=== PATIENT | male | born 1955 | race Two or more races ===

== ENCOUNTER 2017-12-26 05:52 | Inpatient (IN) | payer MEDICARE, MEDICAID ==
[~2017-12-26] VITALS: Ht 160 cm; Wt 60.7 kg
[~2017-12-26 05:52] MED LIST: FURO20TA3 PO; IBUP200C14 PO
[2017-12-26 07:14] LABS: Basophils # (auto) 0 uL; Basophils % (auto) 0.3 % (0.0-2.0); Eosinophils # (auto) 0.1 uL; Eosinophils % (auto) 1.5 % (0.0-7.0); Hematocrit 37.3 % (41.0-53.0); Hemoglobin 12.4 g/dL (13.5-17.5); Lymphocytes # (auto) 0.3 uL; Lymphocytes % (auto) 3.8 % (10.0-50.0); Mean Corpuscular Hgb Conc. 33.2 g/dL (32.0-36.0); Mean Corpuscular Volume 90.2 fL (80.0-100.0); Monocytes # (auto) 0.9 uL; Monocytes % (auto) 12.1 % (0.0-12.0); Neutrophils # (auto) 6.3 uL; Neutrophils % (auto) 82.3 % (37.0-80.0); Platelet Count (auto) 105 10^3/uL (140-450); Red Blood Cells 4.13 10^6/uL (4.5-5.90); Red Cell Distribution Width 16.8 % (11.8-14.3); White Blood Cell 7.7 10^3/uL (4.4-10.8)
[2017-12-26 07:16] LABS: Urine Bacteria FEW /hpf (None Seen); Urine Blood 2+ /uL (Negative); Urine Mucus FEW (None Seen); Urine Specific Gravity 1.022 (1.001-1.035); Urine WBC 2 /hpf (0 - 3)
[2017-12-26 07:35] LABS: Alanine Aminotransferase 14 U/L (16-61); Alkaline Phosphatase 127 U/L (45-117); Amylase 55 U/L (25-115); Anion Gap 11 (5-15); Aspartate Aminotransferase 50 U/L (15-37); BUN/Creatinine Ratio 23.4; Bilirubin, Total 2.8 mg/dL (0.2-1.0); Blood Urea Nitrogen 26 mg/dL (7-18); Calcium 7.7 mg/dL (8.5-10.1); Carbon Dioxide 17 mmol/L (21-32); Chloride 113 mmol/L (98-107); GFR African American 86 mL/min; GFR Non-African American 71 mL/min; Glucose 110 mg/dL (74-106); Lipase 391 U/L (73-393); Magnesium 2.6 mg/dL (1.6-2.6); Potassium 3.4 mmol/L (3.5-5.1); Sodium 141 mmol/L (136-145)
[2017-12-26 07:36] LABS: INR 1.17 (0.9-1.15); Partial Thromboplastin Time 34.5 sec (23.78-33.04); Prothrombin Time 12.4 sec (9.27-12.13)
[2017-12-26] MEDS ORDERED: SODIUM CHLORIDE 0.9% 1,000 ML IV ONE (09:21)
[2017-12-26] MEDS ORDERED: NITROGLYCERIN 0.4 MG SL TAB SL PRN (13:00)
[2017-12-26] MEDS ORDERED: PROMETHAZINE HCL 25 MG/ML 1ML IV PRN (13:00)
[2017-12-26] MEDS ORDERED: HYDROmorphone HCL 2 MG/ML VL IV PRN (13:00)
[2017-12-26] MEDS ORDERED: TEMAZEPAM 15 MG CAP PO PRN (13:00)
[2017-12-26] MEDS ORDERED: cefTRIAXone 1GM/10ml IVPUSH 10 ML IV ONE (13:00)
[2017-12-26] MEDS ORDERED: ACETAMINOPHEN 500 MG TAB PO PRN (13:00)
[2017-12-26] MEDS ORDERED: MORPHINE SULF(PF) 0.5MG/ML 10ML VIAL IV PRN (13:00)
[2017-12-26] MEDS: SODIUM CHLORIDE 0.9% 1,000 ML IV SCH (16:31)
[2017-12-26] MEDS ORDERED: GASTROGRAFIN 30 ML SOL ONE (16:35)
[2017-12-26] MEDS: metroNIDAZOLE 500MG/100ML 100 ML IV SCH (18:15)
[2017-12-26] MEDS ORDERED: IOHEXOL 300 MG/ML 75ml BOTTLE IJ ONE (18:50)
[2017-12-26 21:42] VITALS: BP 153/78
[2017-12-26 22:00] VITALS: BP 153/78
[2017-12-27] MEDS: metroNIDAZOLE 500MG/100ML 100 ML IV SCH ×4 (00:12→17:52)
[2017-12-27] MEDS: SODIUM CHLORIDE 0.9% 1,000 ML IV SCH ×2 (00:12→10:13)
[2017-12-27] MEDS: HYDROcodone-ACET 5/325MG TAB PO PRN ×4 (01:31→23:44)
[2017-12-27] MEDS ORDERED: KETOROLAC TROMETH 30 MG/ML 1ML VIAL IV ONE (03:00)
[2017-12-27 05:00] VITALS: BP 115/55
[2017-12-27 05:52] LABS: Basophils # (auto) 0 uL; Basophils % (auto) 0.1 % (0.0-2.0); Eosinophils # (auto) 0.1 uL; Eosinophils % (auto) 1.3 % (0.0-7.0); Hematocrit 31.6 % (41.0-53.0); Hemoglobin 10.8 g/dL (13.5-17.5); Lymphocytes # (auto) 0.3 uL; Lymphocytes % (auto) 4.8 % (10.0-50.0); Mean Corpuscular Hemoglobin 30.3 pg (28.0-32.0); Mean Corpuscular Hgb Conc. 34.2 g/dL (32.0-36.0); Mean Corpuscular Volume 88.8 fL (80.0-100.0); Monocytes # (auto) 0.8 uL; Neutrophils # (auto) 5.7 uL; Neutrophils % (auto) 82.8 % (37.0-80.0); Platelet Count (auto) 101 10^3/uL (140-450); Red Blood Cells 3.56 10^6/uL (4.5-5.90); Red Cell Distribution Width 16.2 % (11.8-14.3); White Blood Cell 6.9 10^3/uL (4.4-10.8)
[2017-12-27 06:15] LABS: Potassium 3.5 mmol/L (3.5-5.1)
[2017-12-27 06:23] LABS: Albumin 1.7 g/dL (3.4-5.0); BUN/Creatinine Ratio 21.2; Bilirubin, Total 2.7 mg/dL (0.2-1.0); Calcium 7.3 mg/dL (8.5-10.1); Total Protein 5.6 g/dL (6.4-8.2)
[2017-12-27] MEDS ORDERED: IOHEXOL 300 MG/ML 75ml BOTTLE IJ ONE (08:26)
[2017-12-27 09:00] VITALS: BP 106/56
[2017-12-27] MEDS: PANTOPRAZOLE 40 MG TAB PO SCH (10:14)
[2017-12-27] MEDS: cefTRIAXone 1GM/10ml IVPUSH 10 ML IV SCH (10:14)
[2017-12-27 13:00] VITALS: BP 117/62
[2017-12-27 17:00] VITALS: BP 132/73
[2017-12-27 22:00] VITALS: BP 105/60
[2017-12-27] MEDS: LORazepam 0.5 MG TAB PO PRN (22:22)
[2017-12-28] MEDS: metroNIDAZOLE 500MG/100ML 100 ML IV SCH ×5 (00:22→23:45)
[2017-12-28 05:01] VITALS: BP 117/61
[2017-12-28 05:04] VITALS: BP 117/61
[2017-12-28] MEDS: HYDROcodone-ACET 5/325MG TAB PO PRN (05:47)
[2017-12-28] MEDS: LORazepam 0.5 MG TAB PO PRN (06:01)
[2017-12-28 06:22] LABS: Basophils # (auto) 0 uL; Basophils % (auto) 0.3 % (0.0-2.0); Eosinophils # (auto) 0.1 uL; Eosinophils % (auto) 1.2 % (0.0-7.0); Hematocrit 34.5 % (41.0-53.0); Hemoglobin 11.8 g/dL (13.5-17.5); Lymphocytes # (auto) 0.4 uL; Lymphocytes % (auto) 4.4 % (10.0-50.0); Mean Corpuscular Hemoglobin 30.5 pg (28.0-32.0); Mean Corpuscular Hgb Conc. 34.1 g/dL (32.0-36.0); Mean Corpuscular Volume 89.6 fL (80.0-100.0); Monocytes # (auto) 0.9 uL; Monocytes % (auto) 10.2 % (0.0-12.0); Neutrophils # (auto) 7.5 uL; Neutrophils % (auto) 83.9 % (37.0-80.0); Platelet Count (auto) 104 10^3/uL (140-450); Red Blood Cells 3.85 10^6/uL (4.5-5.90); Red Cell Distribution Width 16.6 % (11.8-14.3)
[2017-12-28 06:43] LABS: Albumin 1.8 g/dL (3.4-5.0); BUN/Creatinine Ratio 19.8; Calcium 7.4 mg/dL (8.5-10.1); Potassium 3.7 mmol/L (3.5-5.1)
[2017-12-28 06:46] LABS: Bilirubin, Total 3.5 mg/dL (0.2-1.0); Total Protein 5.9 g/dL (6.4-8.2)
[2017-12-28 09:00] VITALS: BP 102/58
[2017-12-28] MEDS ORDERED: OXYCODONE HCL 5MG TAB PO PRN (09:30)
[2017-12-28] MEDS: cefTRIAXone 1GM/10ml IVPUSH 10 ML IV SCH (09:34)
[2017-12-28] MEDS: PANTOPRAZOLE 40 MG TAB PO SCH (09:35)
[2017-12-28] MEDS: MORPHINE SULF 15mg ER tab PO SCH ×2 (09:35→23:45)
[2017-12-28 13:00] VITALS: BP 126/69
[2017-12-28 17:00] VITALS: BP 136/64
[2017-12-28 22:00] VITALS: BP 128/56
[2017-12-29] MEDS: LORazepam 0.5 MG TAB PO PRN (01:04)
[2017-12-29 05:00] VITALS: BP 122/72
[2017-12-29] MEDS: metroNIDAZOLE 500MG/100ML 100 ML IV SCH ×3 (05:58→18:00)
[2017-12-29 09:00] VITALS: BP 113/61
[2017-12-29] MEDS: cefTRIAXone 1GM/10ml IVPUSH 10 ML IV SCH (10:32)
[2017-12-29] MEDS: MORPHINE SULF 15mg ER tab PO SCH ×2 (10:33→22:18)
[2017-12-29] MEDS: PANTOPRAZOLE 40 MG TAB PO SCH (10:33)
[2017-12-29 13:00] VITALS: BP 117/68
[2017-12-29 17:00] VITALS: BP 130/68
[2017-12-29 22:00] VITALS: BP 127/60
[2017-12-30] MEDS: metroNIDAZOLE 500MG/100ML 100 ML IV SCH ×3 (00:14→12:18)
[2017-12-30] MEDS: LORazepam 0.5 MG TAB PO PRN (00:15)
[2017-12-30 05:43] VITALS: BP 128/64
[2017-12-30 09:00] VITALS: BP 130/67
[2017-12-30] MEDS: cefTRIAXone 1GM/10ml IVPUSH 10 ML IV SCH (09:48)
[2017-12-30] MEDS: PANTOPRAZOLE 40 MG TAB PO SCH (09:49)
[2017-12-30] MEDS: MORPHINE SULF 15mg ER tab PO SCH (09:49)
[2017-12-30 13:00] VITALS: BP 133/68
[2017-12-30 13:36] VITALS: BP 130/67
[2017-12-31 08:55] LABS: Hepatitis B Surface Antibody Negative
[2017-12-31 13:31] LABS: Hepatitis C Antibody Positive (Negative)
== END 2017-12-30 15:35 | disposition home or self-care (01) | DRG 371 ==
LOC: ER 05:55 → TELE 05:56 → TELE-WESTW 20:20 → WEST WING 12-28 09:22
PROVIDERS: ADMIT Internal Medicine; ATTEND Internal Medicine
DX: K65.1 Peritoneal abscess (principal); E43 Unspecified severe protein-calorie malnutrition; I81 Portal vein thrombosis; I85.00 Esophageal varices without bleeding; K76.6 Portal hypertension; A04.72 Enterocolitis due to Clostridium difficile, not specified as recurrent; D68.9 Coagulation defect, unspecified; K70.31 Alcoholic cirrhosis of liver with ascites; K52.9 Noninfective gastroenteritis and colitis, unspecified; E87.6 Hypokalemia; E83.51 Hypocalcemia; D69.59 Other secondary thrombocytopenia; D64.9 Anemia, unspecified; M54.5 Low back pain; K80.20 Calculus of gallbladder without cholecystitis without obstruction; F17.210 Nicotine dependence, cigarettes, uncomplicated; I10 Essential (primary) hypertension; Z83.3 Family history of diabetes mellitus; Z82.49 Family history of ischemic heart disease and other diseases of the circulatory system
CPT/HCPCS: 36415; 71045; 74176; 74177; 80053; 81001; 82140; 82150; 82270; 82378; 83690; 83735; 83880; 84443; 84484; 85025; 85610; 85730; 86706; 86803; 87045; 87086; 87493; 87899; 93005; 96374; J1885; J3490; Q9967

== ENCOUNTER 2019-06-17 10:09 | Emergency (ER) | payer MEDICARE, MEDICAID ==
[~2019-06-17] VITALS: Ht 165.1 cm; Wt 59.0 kg
[2019-06-17 10:18] VITALS: BP 155/51
== END 2019-06-17 12:28 | disposition home or self-care (01) ==
LOC: ER 10:09
DX: S60.222A Contusion of left hand, initial encounter (principal); I10 Essential (primary) hypertension; F17.210 Nicotine dependence, cigarettes, uncomplicated; Z88.8 Allergy status to other drugs, medicaments and biological substances; W18.39XA Other fall on same level, initial encounter; Y93.89 Activity, other specified; Y92.89 Other specified places as the place of occurrence of the external cause; Y99.8 Other external cause status
CPT/HCPCS: 73130